=== PATIENT | male | born 1965 | race African-American/Black ===

== ENCOUNTER 2025-01-16 13:26 | Emergency (ER) | payer OTHER ==
[2025-01-16 13:36] VITALS: BP 151/70; PULSE 69; RESP 18; TEMP 97.5; BMI 31.8
[2025-01-16 15:21] LABS: ABSOLUTE IMMATURE GRANULOCYTES 0.03 x10^3/uL (0.0-0.031); BASOPHILS # 0.04 x10^3/uL (0.01-0.08); EOSINOPHIL % 2.9 % (0.8-7.0); EOSINOPHILS # 0.20 x10^3/uL (0.04-0.54); MCHC 32.6 g/dl (32.3-36.5); MEAN CELL VOLUME 93.1 fl (79.0-92.2); MEAN PLT VOLUME 8.5 fl (9.4-12.4); MONOCYTE # 0.46 x10^3/uL (0.30-0.82); MONOCYTE % 6.7 % (5.3-12.2); RDW 12.1 % (12.2-16.1)
[2025-01-16 15:39] LABS: GLUCOSE,RANDOM 81.0 mg/dL (74-106); TOT PROT 7.4 g/dl (6.4-8.2)
[2025-01-16 15:40] LABS: CO2 23.0 mmol/L (21-32)
[2025-01-16 15:42] LABS: ALK PHOS 98.0 U/L (40-150)
[2025-01-16 15:44] LABS: SGOT/AST 34.0 U/L (5-34); SGPT/ALT 17.0 U/L (0-55)
[2025-01-16 15:45] LABS: CREATININE 1.65 mg/dL (0.55-1.3)
[2025-01-16 15:57] LABS: ERYTHROCYTE SEDIMENTATION RATE 99 mm/hr (0-20)
[2025-01-16 16:19] LABS: HIV INTERPRETATION NEGATIVE (NEGATIVE)
[2025-01-16 16:20] LABS: HCV DIAGNOSTIC IN-HOUSE W/RFLX NON-REACTIVE (NONREACTIVE)
== END 2025-01-16 18:06 | disposition home or self-care (01) ==
LOC: JER 13:26
DX: E11.621 Type 2 diabetes mellitus with foot ulcer (principal); L97.519 Non-pressure chronic ulcer of other part of right foot with unspecified severity
CPT/HCPCS: 36415; 73610-TC-RT-FY; 73630-TC-RT-FY; 80053; 83036; 85025; 85651; 86140; 86803; 86850; 86900; 86901; 87389; 93971-TC-RT; 99285-25